=== PATIENT | male | born 1980 | race Two or more races ===

== ENCOUNTER 2024-05-12 16:21 | Emergency (ER) | payer BC, OTHER ==
[~2024-05-12] VITALS: Ht 167.6 cm; Wt 100.1 kg
--- NOTE | 2024-05-12 16:56 | DVH ---
CHEST RADIOGRAPH Indication: Cough Technique: Frontal and lateral view of the chest was obtained Comparison: None FINDINGS: Lines and Tubes: None Lungs: Clear Pleura: No effusion. No pneumothorax. Cardiomediastinal contours: Unremarkable Bones: Unremarkable IMPRESSION: No evidence of acute disease.
--- NOTE | 2024-05-12 17:34 | ED.PDOC ---
SOB-HPI HPI Comments 44y M who presents to the ED for chief complaint of cough. Pt states he has been having cough, congestion, fever, and rhinorrhea for the past 10 days. Pt otherwise denies any recent sick contacts. Pt otherwise has temp of 98.2 F and 02 sat of 96% on room air with no noted respiratory distress. Pt otherwise denies any other symptoms at this time. Vital signs were stable on arrival. Chief Complaint: Cough Time Seen by MD: 17:31 Primary Care Provider: JAYCE Reviewed notes: Nurses Notes Information Source: Patient Mode of Arrival: Ambulatory Severity: Moderate Timing: Days Duration: Since onset Context: At Rest PE Risk Factors: None History of: None Prehospital treatment: None Modifying Factors: Nothing Associated Signs and Symptoms: Fever, Cough, Nasal Congestion Past Medical History PAST MEDICAL HISTORY: Denies Surgical History: Denies all surgeries Family History Family History: Reviewed,noncontributory to illness, No family hx of Cancer, No family hx of DM, No family hx of Heart karla, No family hx of HTN, No family hx ofKidney karla, No family hx of Liver karla, No family hx of Lung karla, No family hx of Stroke Social History Smoker: Non-Smoker Alcohol: Denies ETOH Use Drugs: Denies Drug Use Lives In: Home Constitutional: reports: fever; denies: chills, diaphoresis, fatigue, malaise, sweats, weakness, others EENTM: reports: nasal discharge, nose congestion; denies: blurred vision, double vision, ear bleeding, ear discharge, ear drainage, ear pain, ear ringing, eye pain, eye redness, hearing loss, mouth pain, mouth swelling, nose bleeding, nose pain, photophobia, tearing, throat pain, throat swelling, voice changes, others Respiratory: reports: cough; denies: hemoptysis, orthopnea, SOB at rest, short ness of breath, SOB with excertion, stridor, wheezing, others Cardiovascular: denies: chest pain, dizzy spells, diaphoresis, Dyspnea on exertion, edema, irregular heart beat, left arm pain, lightheadedness, palpitations, PND, syncope, others Gastrointestinal: denies: abdomen distended, abdominal pain, blood streaked bowels, constipated, diarrhea, dysphagia, difficulty swallowing, hematemesis, melena, nausea, poor appetite, poor fluid intake, rectal bleeding, rectal pain, vomiting, others Genitourinary: denies: burning, dysuria, flank pain, frequency, hematuria, incontinence, penile discharge, penile sore, pain, testicle pain, testicle swelling, urgency, others Neurological: denies: dizziness, fainting, headache, left sided numbness, left sided weakness, numbness, paresthesia, pre-existing deficit, right sided numbness, right sided weakness, seizure, speech problems, tingling, tremors, weakness, others Musculoskeletal: denies: back pain, gout, joint pain, joint swelling, muscle pain, muscle stiffness, neck pain, others Integumetry: denies: bruises, change in color, change in hair/nails, dryness, laceration, lesions, lumps, rash, wounds, others Allergic/Immunocompromised: denies: Difficulty Healing, Frequent Infections, Hives, Itching, others Hematologic/Lymphatic: denies: anemia, blood clots, easy bleeding, easy bruising, swollen glands, others Endocrine: denies: excessive hunger, excessive sweating, excessive thirst, excessive urination, flushing, intolerance to cold, intolerance to heat, unexplained weight gain, unexplained weight loss, others Psychiatric: denies: anxiety, bipolar disorder, depression, hopeless, panic disorder, schizophrenia, sleepless, suicidal, others All Other Systems: Reviewed and Negative Physical Exam General Appearance: Moderate Distress (Patient presents as a moderately ill 44-year-old male.), Normal HEENT: Pharynx Normal, TMs Normal, Other ([place]) Neck: Full Range of Motion, Non-Tender, Normal, Normal Inspection Respiratory: Chest Non-Tender, Lungs Clear, No Accessory Muscle Use, No Respiratory Distress, Normal Breath Sounds, Other (Unremarkable auscultation of bilateral lung lowe.) Cardiovascular: No Edema, No JVD, No Murmur, No Gallop, Normal Peripheral Pulses, Regular Rate/Rhythm Breast Exam: Deferred Gastrointestinal: No Organomegaly, Non Tender, No Pulsatile Mass, Normal Bowel Sounds, Soft Genitalia: Deferred Pelvic: Deferred Rectal: Deferred Extremities: No calf tenderness, Normal capillary refill, Normal inspection, Normal range of motion, Non-tender, No pedal edema Neurologic: Alert, No Motor Deficits, Normal Affect, Normal Mood, No Sensory Deficits Cerebellar Function: Normal Reflexes: Normal Skin: Dry, Normal Color, Warm Lymphatic: No Adenopathy Was a procedure done? Was a procedure done?: No Differential Dx Differential Diagnosis: Asthma, Bronchitis, Pneumonia, Respiratory Distress, Pharyngitis, URI Comments COVID, Influenza A and B, X-Ray, Labs, Meds, VS Vital Signs Date Time Temp Pulse Resp B/P (MAP) Pulse Ox O2 Delivery O2 Flow Rate FiO2 05/12/24 17:54 98.2 94 19 143/89 (107) 96 98.2 05/12/24 17:54 94 19 96 Room Air 05/12/24 16:32 98.2 85 18 135/100 (112) 96 Lab Test 05/12/24 16:48 Range/Units Influenza Type A Antigen Positive Negative Influenza Type B Antigen Negative Negative SARS-CoV-2 Antigen (Rapid) Negative NEGATIVE Current Medications Medications (Trade) Dose Ordered Sig/Yazan Route Start Time Stop Time Status Last Admin Dexamethasone Sodium Phosphate (Decadron Injection) 10 mg ONCE ONCE IM 05/12/24 16:45 05/12/24 16:46 DC 05/12/24 17:54 [place] [id number] Ph: [phone] DIAGNOSTIC IMAGING Diagnostic Imaging Report : [id number] Signed PATIENT: OSWALDO MOSES ACCT: [id number] UNIT: [id number] : 1980 LOC: ER ROOM / BED: / AGE / SEX: 44 / M ADM STATUS: REG ER SERVICE ORDERING PHYSICIAN: BENJAMIN COVARRUBIAS PAC PROCEDURE(s): CXR2 - CHEST TWO VIEWS ROUTINE REASON: Cough ORDER NUMBER(s): [id number], ACCESSION NUMBER(s): [id number] CHEST RADIOGRAPH Indication: Cough Technique: Frontal and lateral view of the chest was obtained Comparison: None FINDINGS: Lines and Tubes: None Lungs: Clear Pleura: No effusion. No pneumothorax. Cardiomediastinal contours: Unremarkable Bones: Unremarkable IMPRESSION: No evidence of acute disease. ATED BY: ALAN HARRISON MD DICTATED DATE/TIME: 05/12/241651 SIGNED BY: ALAN HARRISON MD SIGNED DATE/TIME: 12/27/24 1652 CC: X-Ray, Labs, Meds, VS Comment All studies performed the ED were evaluated by me personally. Imaging studies were unremarkable for any consolidation or pulmonary concerns. Patient did test positive for influenza A. Advised patient utilize medication as directed as well as additional medication as needed. Advised good hydration and healthy nutrition throughout illness event. Time of 1ST Reevaluation: 18:47 Reevaluation 1ST: Improved Consultation: PCP Patient Education/Counseling: Diagnosis, Treatment Family Education/Counseling: Diagnosis, Treatment, No Family Present Additional Information - I reviewed the following notes from patient's past medical encounters: - The following tests were ordered, and results were reviewed by me: (Labs, X- Ray, EKG): COVID test, Influenza A and B, chest x-ray - Additional information was gathered from interviewing the following independe nt Historian: (Family, Other Providers, EMT): none - I reviewed and agreed with the following test results read by other provider: (X-ray, CT, US): radiologist - I discussed treatments and results with medical personnel and: (consultants, family): none Departure 1 Departure Time of Disposition: 18:48 Impression: Primary Impression: Influenza A Disposition: 01 HOME / SELF CARE / HOMELESS Condition: Stable Additional Instructions: Advise utilizing medication as needed for symptomatic relief as well as good hydration and healthy nutrition throughout illness event. e-Prescriptions Acetaminophen (Acetaminophen) 500 Mg Tab 500 MG PO Q4HP PRN, #30 TAB Prov: BENJAMIN COVARRUBIAS PAC 05/12/24 Benzonatate (Benzonatate) 100 Mg Cap 1 CAP PO Q6HP PRN, #20 CAP Prov: BENJAMIN COVARRUBIAS PAC 05/12/24 Loratadine (Claritin) 10 Mg Cap 10 MG PO DAILY for 10 Days, #10 CAP Prov: BENJAMIN COVARRUBIAS PAC 05/12/24 Oseltamivir Phosphate (Tamiflu) 75 Mg Cap 75 MG PO BID for 5 Days, #10 CAP Prov: BENJAMIN COVRARUBIAS PAC 05/12/24 Discharged With: Self, Friend Critical Care Note Critical Care Time?: No Stability Stability form required: No Heart Score Heart Score: Heart Score Response (Comments) Value History N/A 0 EKG N/A 0 Age N/A 0 Risk Factors N/A 0 Troponin N/A 0 Total 0 I personally scribed for BENJAMIN COVARRUBIAS PAC ([email or web address]) on 05/12/24 at 17:33. Electronically submitted by Supriya Robles ([email or web address]). BENJAMIN COVARRUBIAS PAC May 12, 2024 17:33
[2024-05-12] MEDS: DexAMETHasone SOD PHOS 10MG/1ML VIAL INJ IM ONE (17:54)
[2024-05-12 18:08] LABS: COVID19 ANTIGEN SOFIA FIA NEGATIVE (NEGATIVE)
[2024-05-12 18:13] LABS: Rapid Influenza A Positive (Negative); Rapid Influenza B Negative (Negative)
[2024-05-12] MEDS ORDERED: BENZ100C97 PO (18:50)
[2024-05-12] MEDS ORDERED: TAMIFLU PO (18:50)
[2024-05-12] MEDS ORDERED: LORA10CA PO (18:50)
[2024-05-12] MEDS ORDERED: ACET500T58 PO (18:50)
[2024-05-12 19:01] VITALS: BP 137/97; PULSE 78; RESP 18; TEMP 98.4; O2SAT 97
== END 2024-05-12 19:02 | disposition home or self-care (01) ==
LOC: ER 16:21
DX: J10.1 Influenza due to other identified influenza virus with other respiratory manifestations (principal); Z20.822 Contact with and (suspected) exposure to COVID-19
CPT/HCPCS: 36415; 71046; 87426; 87804; 96372; 99284; J1100